=== PATIENT | female | born 1945 | race Hispanic/Latino ===

== ENCOUNTER → 2021-04-13 | Outpatient (CLI) | payer OTHER | END | disposition home or self-care (01) | LOC: RAH 14:57 | PROVIDERS: ATTEND Family Medicine | DX: M79.605 Pain in left leg (principal) | CPT/HCPCS: 93971 ==

== ENCOUNTER → 2024-01-31 | Outpatient (CLI) | payer OTHER | END | disposition home or self-care (01) | LOC: SHCH 13:02 | PROVIDERS: ATTEND Internal Medicine | DX: I07.1 Rheumatic tricuspid insufficiency (principal); R94.31 Abnormal electrocardiogram [ECG] [EKG]; R07.9 Chest pain, unspecified | CPT/HCPCS: 93306 ==